=== PATIENT | male | born 1935 | race Two or more races ===

== ENCOUNTER 2023-07-02 19:32 | Emergency (ER) | payer OTHER ==
[~2023-07-02] VITALS: Ht 160 cm; Wt 113.4 kg
[2023-07-02] MEDS ORDERED: PLAVIX75 MG (20:04)
[2023-07-02] MEDS ORDERED: TENORMIN25 MG (20:04)
[2023-07-02] MEDS ORDERED: PAXIL20 MG (20:04)
[2023-07-02] MEDS ORDERED: NORVASC2.5 M1 PO (20:04)
[2023-07-02] MEDS ORDERED: MICRO-K 1010 MEQ PO (23:00)
== END 2023-07-02 23:28 | disposition home or self-care (01) ==
LOC: ER 19:32
DX: R55 Syncope and collapse (principal); K21.9 Gastro-esophageal reflux disease without esophagitis; I10 Essential (primary) hypertension; I25.2 Old myocardial infarction; E87.6 Hypokalemia
CPT/HCPCS: 36415; 70450; 71045; 96365; 96366; 99284; J2405; J3490; J7042